=== PATIENT | male | born 1940 | race Caucasian/White ===

== ENCOUNTER → 2023-08-06 13:54 | Outpatient (REF) | payer MEDICARE, SELFPAY | LOC: DHVS 13:54 | PROVIDERS: ATTENDING PHYSICIAN Surgery Vascular Surgery; FAMILY PHYSICIAN Family Medicine | DX: I73.9 Peripheral vascular disease, unspecified (principal) | CPT/HCPCS: 93922; 93925 ==

== ENCOUNTER → 2024-02-19 12:42 | Outpatient (REF) | payer MEDICARE, SELFPAY | LOC: RCS 12:42 | PROVIDERS: ATTENDING PHYSICIAN Internal Medicine Cardiovascular Disease; FAMILY PHYSICIAN Family Medicine | DX: Z95.2 Presence of prosthetic heart valve (principal); I34.0 Nonrheumatic mitral (valve) insufficiency | CPT/HCPCS: 93306 ==

== ENCOUNTER → 2024-04-07 11:03 | Outpatient (REF) | payer MEDICARE, SELFPAY | LOC: RAD 11:03 | PROVIDERS: ATTENDING PHYSICIAN Surgery Vascular Surgery; FAMILY PHYSICIAN Family Medicine | DX: I73.9 Peripheral vascular disease, unspecified (principal) | CPT/HCPCS: 93922; 93925 ==

== ENCOUNTER 2024-05-21 13:00 | Outpatient (RCR) | payer MEDICARE, SELFPAY ==
[2024-05-21 14:31] LABS: Glucose - Point of Care 260 mg/dl (70-99)
[2024-05-21 15:24] LABS: Glucose - Point of Care 171 mg/dl (70-99)
== END 2024-05-21 23:59 | disposition home or self-care (01) ==
LOC: CRHB 13:00
PROVIDERS: ATTENDING PHYSICIAN Surgery Vascular Surgery; FAMILY PHYSICIAN Family Medicine
DX: I70.213 Atherosclerosis of native arteries of extremities with intermittent claudication, bilateral legs (principal)
CPT/HCPCS: 82962; 93668

== ENCOUNTER 2024-06-23 11:43 | Outpatient (RCR) | payer MEDICARE, SELFPAY ==
[2024-05-26 11:01] LABS: Glucose - Point of Care 180 mg/dl (70-99)
[2024-05-26 12:07] LABS: Glucose - Point of Care 136 mg/dl (70-99)
[2024-05-30 11:58] LABS: Glucose - Point of Care 122 mg/dl (70-99)
[2024-05-30 11:58] LABS: Glucose - Point of Care 161 mg/dl (70-99)
[2024-06-02 11:02] LABS: Glucose - Point of Care 146 mg/dl (70-99)
[2024-06-02 11:53] LABS: Glucose - Point of Care 105 mg/dl (70-99)
[2024-06-04 10:40] LABS: Glucose - Point of Care 205 mg/dl (70-99)
[2024-06-04 11:56] LABS: Glucose - Point of Care 194 mg/dl (70-99)
[2024-06-06 10:51] LABS: Glucose - Point of Care 154 mg/dl (70-99)
[2024-06-06 12:00] LABS: Glucose - Point of Care 100 mg/dl (70-99)
[2024-06-09 11:12] LABS: Glucose - Point of Care 222 mg/dl (70-99)
[2024-06-09 12:10] LABS: Glucose - Point of Care 159 mg/dl (70-99)
[2024-06-11 11:00] LABS: Glucose - Point of Care 120 mg/dl (70-99)
[2024-06-11 12:02] LABS: Glucose - Point of Care 88 mg/dl (70-99)
[2024-06-13 10:56] LABS: Glucose - Point of Care 193 mg/dl (70-99)
[2024-06-13 11:56] LABS: Glucose - Point of Care 111 mg/dl (70-99)
== END 2024-06-23 23:59 | disposition home or self-care (01) ==
LOC: CRHB 11:43
PROVIDERS: ATTENDING PHYSICIAN Surgery Vascular Surgery; FAMILY PHYSICIAN Family Medicine
DX: I70.213 Atherosclerosis of native arteries of extremities with intermittent claudication, bilateral legs (principal)
CPT/HCPCS: 82962; 93668

== ENCOUNTER 2024-07-25 11:33 | Outpatient (RCR) | payer MEDICARE, SELFPAY | END 2024-07-25 23:59 | disposition home or self-care (01) | LOC: CRHB 11:33 | PROVIDERS: ATTENDING PHYSICIAN Surgery Vascular Surgery; FAMILY PHYSICIAN Family Medicine | DX: I70.213 Atherosclerosis of native arteries of extremities with intermittent claudication, bilateral legs (principal) | CPT/HCPCS: 93668 ==

== ENCOUNTER → 2024-07-30 12:24 | Outpatient (REF) | payer MEDICARE, SELFPAY | LOC: RAD 12:24 | PROVIDERS: ATTENDING PHYSICIAN Family Medicine | DX: R63.4 Abnormal weight loss (principal) | CPT/HCPCS: 71046 ==

== ENCOUNTER → 2024-08-01 13:14 | Outpatient (REF) | payer MEDICARE, SELFPAY | LOC: RAD 13:14 | PROVIDERS: ATTENDING PHYSICIAN Family Medicine | DX: R63.4 Abnormal weight loss (principal) | CPT/HCPCS: 74177; Q9967 ==

== ENCOUNTER 2024-08-18 11:20 | Outpatient (RCR) | payer MEDICARE, SELFPAY | END 2024-08-18 16:46 | disposition home or self-care (01) | LOC: CRHB 11:20 | PROVIDERS: ATTENDING PHYSICIAN Surgery Vascular Surgery; FAMILY PHYSICIAN Family Medicine | DX: I70.213 Atherosclerosis of native arteries of extremities with intermittent claudication, bilateral legs (principal) | CPT/HCPCS: 93668; 93798 ==

== ENCOUNTER → 2024-08-22 13:02 | Outpatient (REF) | payer MEDICARE, SELFPAY | LOC: RAD 13:02 | PROVIDERS: ATTENDING PHYSICIAN Family Medicine | DX: M25.511 Pain in right shoulder (principal) | CPT/HCPCS: 73030 ==

== ENCOUNTER → 2024-10-17 13:56 | Outpatient (REF) | payer MEDICARE, SELFPAY | LOC: DHVS 13:56 | PROVIDERS: ATTENDING PHYSICIAN Surgery Vascular Surgery; FAMILY PHYSICIAN Family Medicine | DX: I73.9 Peripheral vascular disease, unspecified (principal) | CPT/HCPCS: 93922; 93925 ==

== ENCOUNTER 2024-11-05 06:28 | Day surgery (SDC) | payer MEDICARE, SELFPAY ==
[2024-10-30 10:36] LABS: Hematocrit 28.1 % (39.0-52.0); Hemoglobin 9.6 g/dL (13.0-18.0); Mean Corp Hgb Conc. 34.2 g/dL (33.0-37.0); Mean Corpuscular Hgb 32.3 pg (27.0-31.0); Mean Corpuscular Volume 94.6 fL (80.0-94.0); Mean Platelet Volume 10.4 fL (7.4-10.4); Platelet Count 177 10^3/uL (130-400); Red Blood Cell Count 2.97 10^6/uL (4.70-6.10); Red Cell Dist. Width 12.9 % (11.5-14.5); White Blood Cell Count 4.9 10^3/uL (4.8-10.8)
[2024-10-30 11:04] LABS: Blood Urea Nitrogen 28 mg/dl (9-20); Calcium 9.8 mg/dl (8.4-10.2); Carbon Dioxide 27 mmol/L (22-30); Chloride 106 mmol/L (98-107); Glucose 85 mg/dl (70-99); Potassium 4.1 mmol/L (3.5-5.1); Sodium 142 mmol/L (135-145); eGFR 36.89
[2024-10-30 11:52] VITALS: BMI 23.3
--- NOTE | 2024-10-30 14:39 | PTCARENOTE ---
Sarah in office made aware of Cr 1.8.
[2024-11-05] VITALS (12 sets, daily range): BP systolic 118–157; BP diastolic 53–98; BMI 23.3
--- NOTE | 2024-11-05 07:56 | PTCARENOTE ---
Patient is on Plavix and he took it 11/04/24. Dr. Zeng notified and is ok with it. Will monitor patient.
[2024-11-05] MEDS: CYSVIEW KIT 100 MG INTRAVES (08:00)
[2024-11-05 08:17] LABS: Glucose - Point of Care 143 mg/dl (70-99)
[2024-11-05] MEDS: NORMOSOL-R/PLASMALYTE-A 1000 IV (08:22)
--- NOTE | 2024-11-05 08:32 | PTCARENOTE ---
Patient ordered Ancef and patient is allergic to PCN. Dr. Zeng notified and Ancef switched to Levaquin. Will monitor patient.
[2024-11-05] MEDS: SYRINGE NON-PUMP 50 ML IRRIG ×2 (09:57→09:58)
[2024-11-05] MEDS: SYRINGE NON-PUMP 50 MG IRRIG ×2 (09:57→09:58)
[2024-11-05] MEDS: Pyridium 200 MG PO (10:11)
[2024-11-05] MEDS: SUBLIMAZE 25 MCG IV (10:31)
[2024-11-05 11:24] LABS: Glucose - Point of Care 111 mg/dl (70-99)
== END 2024-11-05 12:25 | disposition home or self-care (01) ==
LOC: SDS 06:28
PROVIDERS: ATTENDING PHYSICIAN Specialist; FAMILY PHYSICIAN Family Medicine
DX: C67.9 Malignant neoplasm of bladder, unspecified (principal); R31.0 Gross hematuria
CPT/HCPCS: 52235; 51720; C9738; 88307; 36415; 80048; 82962; 85027; A9589; J9201

== ENCOUNTER 2024-12-09 07:26 | Outpatient (RCR) | payer MEDICARE, SELFPAY ==
[2024-12-09] MEDS: SODIUM BICARBONATE 1150 MEQ IV (08:05)
[2024-12-09 08:22] VITALS: BP 91/54
[2024-12-09 14:50] VITALS: BP 144/54
== END 2024-12-22 23:59 | disposition home or self-care (01) ==
LOC: OID 07:26
PROVIDERS: ATTENDING PHYSICIAN Surgery Vascular Surgery
DX: I73.9 Peripheral vascular disease, unspecified (principal)
CPT/HCPCS: 96365; 96366

== ENCOUNTER → 2024-12-09 07:49 | Outpatient (REF) | payer MEDICARE, SELFPAY | LOC: RAD 07:49 | PROVIDERS: ATTENDING PHYSICIAN Surgery Vascular Surgery | DX: I73.9 Peripheral vascular disease, unspecified (principal) | CPT/HCPCS: 75635; Q9967 ==

== ENCOUNTER 2025-03-02 15:56 | Emergency (ER) | payer MEDICARE, SELFPAY ==
[2025-03-02 16:03] LABS: Glucose - Point of Care 361 mg/dl (70-99)
[2025-03-02 16:41] LABS: Hematocrit 30.4 % (39.0-52.0); Hemoglobin 9.9 g/dL (13.0-18.0); Mean Corp Hgb Conc. 32.6 g/dL (33.0-37.0); Mean Corpuscular Volume 92.7 fL (80.0-94.0); Nucleated Red Blood Cells % 0 % (-); Platelet Count 226 10^3/uL (130-400); Red Cell Dist. Width 13.3 % (11.5-14.5)
[2025-03-02 17:00] LABS: ALT (SGPT) 18 U/L (0-50); AST (SGOT) 22 U/L (17-59); Albumin 3.9 g/dl (3.5-5.0); Alkaline Phosphatase 79 U/L (38-126); Blood Urea Nitrogen 21 mg/dl (9-20); Calcium 10.6 mg/dl (8.4-10.2); Carbon Dioxide 29 mmol/L (22-30); Chloride 100 mmol/L (98-107); Glucose 353 mg/dl (70-99); Potassium 4.0 mmol/L (3.5-5.1); Sodium 135 mmol/L (135-145); Total Protein 6.3 g/dl (6.3-8.2); eGFR 36.66
--- NOTE | 2025-03-02 17:54 | ED.GENMED ---
History of Present Illness
General
Chief Complaint: Blood Sugar Problem
Time Seen by Provider: 03/02/25 17:54
History of Present Illness
History of Present Illness:
FOCUSED PAST MEDICAL HISTORY
- The patient has a history of aortic stenosis, high blood pressure, hyperlipidemia, diabetes, bladder cancer
REVIEW OF OLD RECORDS
- I reviewed Dr. Zeng's note from October 2024 which indicates the patient had a transurethral resection of a bladder tumor, intravesicular chemo instillation and White/bluelight cystoscopy's.
I reviewed the note from Dr. Thibodeaux which indicates 'Romulo's blood sugar is uncontrolled at 307, he is dehydrated based on recent lab, BUN 25, creatinine 2.17, and GFR 29, baseline numbers were BUN 28, creatinine 1.86 and GFR 35'.
Note:
CHIEF COMPLAINT(S)
Unintentional significant weight loss, high blood glucose levels, and possible gastrointestinal bleeding.
HISTORY OF PRESENT ILLNESS
The patient is an 84-year-old male with a history of diabetes mellitus type 2 and peripheral artery disease (PAD), presenting with significant unintentional weight loss. The patient reports a decrease from over 200 pounds a couple of years ago to
about 150 pounds currently. The weight loss was not intentional. On recent blood work, elevated blood glucose levels were noted, with values reportedly as high as 440 mg/dL recently. The patient stopped using some diabetes medications due to high
costs, including Januvia and Janumet, and is currently taking glipizide and metformin. A recent hemoglobin level is reportedly in the 9s.
The patient also reports symptoms consistent with gastrointestinal bleeding, as rectal bleeding was subtly noted on examination, possibly due to internal hemorrhoids. The patient experiences cognitive difficulties post-anesthesia, influencing
decisions about future procedures such as colonoscopy or endoscopy.
The patient has stage 3 kidney disease and is aware of ongoing kidney function issues, with recent creatinine levels around 2. The current creatinine levels and glomerular filtration rate (GFR) are consistent with historical records and have been
stable over the years.
The patient was referred to the emergency room by a primary care provider following concerns about the recent blood work indicating a decline in hemoglobin and glucose management.
PAST MEDICAL AND SURGICAL HISTORY
The patient has a history of aortic valve replacement approximately 17 years ago and is diagnosed with peripheral artery disease (PAD).
ADDITIONAL HISTORY OBTAINED FROM SOURCES OTHER THAN THE PATIENT
Family member accompanying the patient provided a verbal account of recent appointments and test results, including visits to a racetrack steward, a manufacturing analyst, and a primary care physician. The family confirmed the patient was not experiencing
any obvious external signs of bleeding that could explain the loss in blood count, apart from potentially internal hemorrhoids.
CHRONIC MEDICAL CONDITIONS SIGNIFICANTLY AFFECTING CARE
- Diabetes mellitus type 2
- Stage 3 chronic kidney disease
- Peripheral artery disease
SOCIAL DETERMINANTS AFFECTING HEALTH
- Financial constraints impacting the ability to afford certain diabetes medications, such as Januvia and Janumet.
ALLERGIES
- The patient has a history of allergies, including a significant reaction to penicillin and recent hives following an RSV vaccine.
MEDICATIONS
- Glipizide 10 mg, taken once daily
- Metformin 1000 mg, taken once daily
- Plavix (clopidogrel)
PHYSICAL EXAM
General: Alert, no acute distress.
Skin: Warm, dry.
Head: Normocephalic, atraumatic.
Neck: Supple, trachea midline.
Eyes, Ears, Nose, Mouth: Oral mucosa moist.
Cardiovascular: Normal peripheral perfusion, No edema. Regular rhythm
Respiratory: Respirations are non-labored.
Gastrointestinal: Abdomen nondistended. Heme positive loose brown stool on digital rectal examination
Back: Normal range of motion, Normal alignment.
Musculoskeletal: Normal range of motion, normal strength.
Neurological: He is awake and alert, joking but does seem to have some memory issues and some mild cognitive deficits
Psychiatric: Cooperative, appropriate mood & affect.
Rectal Exam: Borderline positive for occult blood; no visible hemorrhoids.
PLAN
- Initiate intravenous fluids.
- Consider a non-contrast CT scan of the abdomen to investigate the cause of the significant weight loss.
- Discuss the benefits and risks of undergoing a colonoscopy and endoscopy concurrently to evaluate gastrointestinal bleeding sources.
- Review financial options for diabetes medications that are more affordable.
- Monitor kidney function and glucose levels closely.
DIFFERENTIAL DIAGNOSIS
The Differential Diagnosis includes, in no particular order and is not limited to:
1. Malignancy
2. Uncontrolled diabetes mellitus
3. Gastrointestinal bleeding secondary to internal hemorrhoids
4. Chronic kidney disease complications
5. Vitamin deficiencies (e.g., vitamin B12 or folate deficiency)
6. Peptic ulcer disease
7. Inflammatory bowel disease
8. Hyperthyroidism
9. Medication-induced weight loss
10. Psychological conditions (e.g., depression) affecting weight and appetite.
Disposition:
SUMMARY OF ENCOUNTER
The patient, an 84-year-old male, presented to the emergency department due to concerns about significant unintentional weight loss and high blood glucose levels. Importantly, the patient was not in distress and was alert during examination. Blood
work indicated stable kidney function, but the glucose levels were notably elevated post-prandial, though fasting sugars were on the lower side. A CT scan was conducted that showed no evidence of malignancy. Diabetes management was a primary
concern, especially in view of financial constraints impacting medication adherence. The possibility of starting insulin was discussed, but the patient declined hospital admission for further glucose monitoring and preferred to manage outpatient.
DISPOSITION
Patient discharged with advice to follow up with primary care, particularly Dr. Thibodeaux, for ongoing diabetes management and consideration of insulin initiation.
ASSESSMENT
- Uncontrolled diabetes mellitus with significant post-prandial hyperglycemia.
- Stable kidney function with no acute deterioration noted.
- Previous discussions regarding potential cognitive decline after anesthesia were reviewed.
PLAN
The patient is advised to monitor his dietary intake closely and to follow up with Dr. Thibodeaux for further diabetes management, including the potential initiation of insulin therapy. Recommended to possibly contact Dr. Thibodeaux the following day to
schedule a follow-up consultation.
INDEPENDENT REVIEW OF LABS AND INTERPRETATION OF TESTS
My independent review of blood work indicates the patients kidney function is stable as per historical reference, with persistent hyperglycemia post-prandial noted in recent assessments.
MEDICAL DECISION MAKING
-Complexity of Data Reviewed:
Chronic conditions affecting care include diabetes mellitus type 2 and stable stage 3 chronic kidney disease.
-Data:
Category 1
Non-emergency department records reviewed, external record reviewed: I reviewed the patients kidney function results, which were stable compared to prior results.
Category 2
Clinical information was obtained from an independent historian, specifically a family member who confirmed adherence to glucose monitoring routines and financial limitations impacting medication affordability.
-Risk:
Prescription medication management was discussed, with the potential for insulin therapy considered but not initiated due to the patients preference.
Care was significantly affected by social determinants of health, specifically financial constraints impacting the patients ability to afford certain diabetes medications.
DIAGNOSIS
- Type 2 Diabetes Mellitus with Hyperglycemia (E11.65)
- Chronic Kidney Disease, Stage 3 (N18.3)
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
RADIOLOGY
- CT chest abdomen pelvis noncontrast did not show any clear sign for malignancy
LABS
- White count normal, hemoglobin 9.9 which is at baseline, glucose 353, creatinine 1.8. Sodium 135, chloride 100, creatinine 1.8, GFR 37, calcium 10.6, glucose 353
UPDATE
- I offered and considered keeping the patient in the hospital however the patient adamantly declined. He refuses to stay in the hospital. We talked about his hyperglycemia. I called his primary care doctor he states it is fast blood sugar was as
low as 71 but after he eats it has been much higher. I did talk about starting him on insulin however the patient also refuses and wants to watch his diet first. He is to follow-up with PMD and also consider following up with [facility] and Dr. Pizarro.
Past History
Past History
ED Past Medical History: Asthma, HTN, Hypercholesterolemia, NIDDM and Valvular disease
ED Past Surgical History: Cardiac
Social History
Tobacco: Former smoker
Alcohol: None
Living: with family
Phy Exam
Physical Exam
Physical Exam:
See HPI
Course
Orders/Labs/Results
Orders:
Orders
03/02/25 16:15
Complete Blood Count/With Diff Urgent
Comprehensive Metabolic Panel Urgent
03/02/25 17:59
0.9% Sodium Chloride 1000 ml [Nss] 1,000 ml IV BOLUS
03/02/25 18:22
CT Chest/abd/pel Wo Iv Cont Urgent
Comment:
Reason For Exam: 80lbs unintentional weight loss; CKD
03/02/25 19:03
Insulin Human Regular [Novolin R] 6 units SC NOW STA
Abnormal Lab Results
03/02/25 03/02/25 03/02/25
16:01 16:15 19:14
RBC 3.28 L 10^6/uL
(4.70-6.10)
Hgb 9.9 L g/dL
(13.0-18.0)
Hct 30.4 L %
(39.0-52.0)
MCHC 32.6 L g/dL
(33.0-37.0)
MPV 10.5 H fL
(7.4-10.4)
Absolute Lymphs (auto) 1.1 L 10^3/uL
(1.2-3.4)
Lymphocytes % 20.4 L %
(20.5-51.1)
BUN 21 H mg/dl
(9-20)
Creatinine 1.8 H mg/dL
(0.7-1.3)
Glucose 353 H mg/dl
(70-99)
Calcium 10.6 H mg/dl
(8.4-10.2)
POC Glucose 361 H mg/dl 258 H mg/dl
(70-99) (70-99)
03/02/25 16:15
03/02/25 16:15
Vital Signs
Initial and Last Documented VS:
Initial Vital Signs
Temp Pulse Resp Pulse Ox
36.7 C 88 18 98
03/02/25 15:59 03/02/25 15:59 03/02/25 15:59 03/02/25 15:59
Last Documented Vital Signs
Temp Pulse Resp BP Pulse Ox
36.7 C 77 16 130/62 98
03/02/25 15:59 03/02/25 18:00 03/02/25 18:00 03/02/25 18:00 03/02/25 19:44
*Pulse Oximetry
SaO2: 98
Oxygen Mode of Delivery: Room air
Patient hypoxic: no
*Critical Care Note
Total Time (30-74mins, 75-104mins- exclusive of procedures): Not Applicable
ED Attending Note
-
Portions of this chart may have been created with voice recognition software.� Occasional wrong word or��sound alike� substitutions may have occurred due to the inherent limitations of voice recognition software.
Discharge Plan
Departure
Patient Disposition: Home (Routine Discharge)
Date of Disposition: 03/02/25
Time of Disposition: 20:24
Patient with high blood pressure during this ER visit?: Yes
Discharge Problem:
Hyperglycemia
Instructions: Type 2 Diabetes (DC), BLOOD PRESSURE
Prescriptions:
No Action
clopidogrel 75 MG tablet
75 mg PO QPM
atorvastatin 40 MG tablet
40 mg PO QPM
diltiazem HCl 180 MG capsule,extended release 24hr
180 mg PO QPM
aspirin 81 MG tablet,delayed release (DR/EC)
81 mg PO QPM
hydrochlorothiazide 25 MG tablet
25 mg PO QPM
multivitamin Tablet
1 tab PO DAILY
glipizide 10 mg Tablet
10 mg PO QPM
acetaminophen [Tylenol Arthritis] 650 mg Tablet Extended Release
1,300 mg PO Q12H PRN (Reason: pain)
ferrous sulfate [iron] 325 mg (65 mg iron) Tablet
325 mg PO DAILY
vitamin E 268 mg (400 unit) Capsule
268 mg PO DAILY
cholecalciferol (vitamin D3) [Vitamin D3] 25 mcg (1,000 unit) Capsule
50 mcg PO DAILY
metformin 1,000 mg Tablet Extended Release 24hr
1,000 mg PO QPM
fluticasone propion-salmeterol [Wixela Inhub] 250-50 mcg/dose Blister With Device
1 inh INHALATION BID
omeprazole 20 mg Capsule,Delayed Release(Dr/Ec)
20 mg PO DAILY
tamsulosin 0.4 mg Capsule
0.4 mg PO DAILY
Referrals:
Lavon Thibodeaux MD [Family Provider, Family Practice]
Activity Restrictions/Additional Instructions:
I spoke to Dr. Thibodeaux. I informed him that your blood sugar has been high here. Your blood sugars as high as 353. Your kidney function is impaired but is at baseline. Your hemoglobin is 9.9 and this is similar to where it has been since 2020.
I did the rectal examination there was a small amount of blood that came out positive (Hemoccult positive) however I did not see any red blood. I recommend that you follow-up with your doctor as well as Dr. Patel. Your primary care doctor may
put you on insulin such as Lantus. Repeat blood sugar was 258.
Interventions
Interventions:
*Risk Screen - Suicide Last Done: 03/02/25 15:59
*General Assessment Last Done: 03/02/25 15:59
*Neglect/Abuse Screening Last Done: 03/02/25 15:59
ED- Neurological Assessment Last Done: 03/02/25 19:44
Discharge Date and Time
Print Language: WELSH
[2025-03-02 18:00] VITALS: BP 130/62
[2025-03-02] MEDS: NSS 1000 IV (19:03)
[2025-03-02] MEDS: NOVOLIN R 6 UNITS SC (19:15)
[2025-03-02 19:17] LABS: Glucose - Point of Care 258 mg/dl (70-99)
[2025-03-02 20:00] VITALS: BP 134/71
[2025-03-02 20:43] LABS: Glucose - Point of Care 158 mg/dl (70-99)
== END 2025-03-02 20:56 | disposition home or self-care (01) ==
LOC: EMR 15:56
PROVIDERS: Emergency Medicine; EMERGENCY PHYSICIAN Emergency Medicine; FAMILY PHYSICIAN Family Medicine
DX: E11.65 Type 2 diabetes mellitus with hyperglycemia (principal); E11.51 Type 2 diabetes mellitus with diabetic peripheral angiopathy without gangrene; E11.22 Type 2 diabetes mellitus with diabetic chronic kidney disease; I12.9 Hypertensive chronic kidney disease with stage 1 through stage 4 chronic kidney disease, or unspecified chronic kidney disease; N18.30 Chronic kidney disease, stage 3 unspecified; E78.00 Pure hypercholesterolemia, unspecified; I35.0 Nonrheumatic aortic (valve) stenosis; J45.909 Unspecified asthma, uncomplicated; Z59.86 Financial insecurity; T38.3X6A Underdosing of insulin and oral hypoglycemic [antidiabetic] drugs, initial encounter; Z91.120 Patient's intentional underdosing of medication regimen due to financial hardship; Z79.84 Long term (current) use of oral hypoglycemic drugs; Z79.02 Long term (current) use of antithrombotics/antiplatelets; Z79.82 Long term (current) use of aspirin; Z95.2 Presence of prosthetic heart valve; Z87.891 Personal history of nicotine dependence; Z85.51 Personal history of malignant neoplasm of bladder; Z88.0 Allergy status to penicillin
CPT/HCPCS: 99284; 96360; 96372 ×2; 71250; 74176; 80053; 82962; 85025

== ENCOUNTER 2025-03-28 04:53 | Emergency (ER) | payer MEDICARE, SELFPAY ==
[2025-03-28 04:54] VITALS: BP 134/50
[2025-03-28 04:56] VITALS: BP 134/50
[2025-03-28 05:01] VITALS: BP 142/62; BMI 21.9
[2025-03-28 05:22] LABS: Hematocrit 28.6 % (39.0-52.0); Hemoglobin 9.3 g/dL (13.0-18.0); Mean Corp Hgb Conc. 32.5 g/dL (33.0-37.0); Mean Corpuscular Volume 93.2 fL (80.0-94.0); Nucleated Red Blood Cells % 0 % (-); Platelet Count 211 10^3/uL (130-400); Red Cell Dist. Width 14.1 % (11.5-14.5)
[2025-03-28 05:53] LABS: ALT (SGPT) 23 U/L (0-50); AST (SGOT) 34 U/L (17-59); Albumin 4.3 g/dl (3.5-5.0); Alkaline Phosphatase 83 U/L (38-126); Blood Urea Nitrogen 28 mg/dl (9-20); Calcium 10.7 mg/dl (8.4-10.2); Carbon Dioxide 21 mmol/L (22-30); Chloride 102 mmol/L (98-107); Estimated Creatinine Clearance 27 ml/min; Glucose 55 mg/dl (70-99); Potassium 3.5 mmol/L (3.5-5.1); Sodium 136 mmol/L (135-145); Total Protein 7.0 g/dl (6.3-8.2); eGFR 36.66
[2025-03-28 06:00] VITALS: BP 127/68
[2025-03-28 06:14] LABS: Glucose - Point of Care 68 mg/dl (70-99)
[2025-03-28 06:36] LABS: Glucose - Point of Care 90 mg/dl (70-99)
[2025-03-28 07:43] LABS: Glucose - Point of Care 94 mg/dl (70-99)
[2025-03-28 08:00] VITALS: BP 111/41
[2025-03-28 09:00] VITALS: BP 136/52
[2025-03-28 09:35] LABS: Glucose - Point of Care 135 mg/dl (70-99)
--- NOTE | 2025-03-28 09:54 | ED.GENMED ---
History of Present Illness
General
Chief Complaint: Fall
Source: patient and spouse
Time Seen by Provider: 03/28/25 06:05
History of Present Illness
History of Present Illness:
Note:
CHIEF COMPLAINT(S)
Feeling unwell, dizziness.
HISTORY OF PRESENT ILLNESS
The patient is an 84-year-old male with a significant medical history including diabetes mellitus, currently managed with oral hypoglycemic agents, who presented with symptoms that began earlier today. The patient, while in bed, experienced a
sensation of feeling 'weird' and subsequently attempted to get out of bed. Upon getting up, he felt unsteady and eventually ended up on the floor. His spouse noticed these signs and called emergency medical services (EMS). The patient denied any
chest pain, palpitations, or heart fluttering during the event. The patient reported sweating profusely this morning, which raised the suspicion of a hypoglycemic event. At home, the patient takes his medication regularly including glipizide, which
he takes two hours after dinner. Given his symptoms and a recorded blood glucose level of 55 mg/dL upon arrival, it is believed that hypoglycemia may have contributed to his acute presentation.
PAST MEDICAL AND SURGICAL HISTORY
1. Diabetes Mellitus
2. Peripheral Artery Disease
3. Hypertension
ADDITIONAL HISTORY OBTAINED FROM SOURCES OTHER THAN THE PATIENT
Per the patients spouse, this morning the patient was perspiring heavily and later attempted to get out of bed, but was too weak. She states he did not fall or hit his head. She assisted him in moving to a more secure area and then contacted EMS.
SOCIAL DETERMINANTS AFFECTING HEALTH
The patient has a supportive spouse, and he has experienced stress related to his health limitations, particularly concerning his mobility due to peripheral artery disease.
ALLERGIES
Penicillin.
MEDICATIONS
1. Glipizide
2. Torvastatin
3. Plavix (clopidogrel)
4. Hydrochlorothiazide
5. Metformin
6. Multivitamin
7. Omeprazole
8. Tamsulosin
9. Vitamin D
REVIEW OF SYSTEMS
- General: Profuse perspiration noted.
- Endocrine: History of hypoglycemic episodes.
- Cardiovascular: Denied chest pain and palpitations.
PHYSICAL EXAM
General: Alert, oriented to person, place, and time, no acute distress.
Skin: Warm, dry.
Head: Normocephalic, atraumatic.
Neck: Supple, trachea midline.
Eye, Ears, Nose, Mouth and Throat: Oral mucosa moist.
Cardiovascular: Heart regular, without murmur, normal peripheral perfusion, no edema.
Respiratory: Respirations are non-labored.
Gastrointestinal: Abdomen non-distended.
Back: Normal range of motion, normal alignment.
Musculoskeletal: Normal range of motion, normal strength.
Neurological: Alert and oriented to person, place, time, and situation, no focal neurological deficit observed.
Psychiatric: Cooperative, appropriate mood and affect.
PROBLEM LIST
Acute Problems:
1. Hypoglycemia
2. Dizziness and fall
Chronic Problems:
1. Diabetes Mellitus
2. Peripheral Artery Disease
3. Hypertension
PLAN
1. Monitor and stabilize blood glucose levels.
2. Re-evaluate blood glucose levels to prevent further hypoglycemic episodes.
3. Educate the patient on the importance of monitoring blood glucose and the potential effects of glipizide.
4. Discuss potential modifications to diabetes medications with endocrinology team to prevent further hypoglycemic episodes.
5. Consider dietary modifications to prevent nocturnal hypoglycemia.
DIFFERENTIAL DIAGNOSIS
The Differential Diagnosis includes, in no particular order and is not limited to:
1. Hypoglycemia
2. Orthostatic hypotension
3. Cardiac arrhythmia
4. Stroke or transient ischemic attack
5. Medication side effects
6. Dehydration
7. Vertebrobasilar insufficiency
8. Hypotensive episode
9. Vasovagal reaction
10. Acute myocardial infarction
Disposition:
SUMMARY OF ENCOUNTER
The 84-year-old male presented to the emergency department after experiencing diaphoresis and weakness at home, with an initial blood glucose level of 55 mg/dL, indicating hypoglycemia. The patient, who is on glipizide, was monitored in the
emergency department for five and a half hours. His condition improved after being fed, and his blood glucose levels normalized. EKG displayed a right bundle branch block and left axis deviation, both chronic. Labs showed normal sodium levels and
chronic renal insufficiency with a creatinine of 1.8 mg/dL, consistent with his baseline. The primary cause of his symptoms was determined to be hypoglycemia, likely related to his medication.
DISPOSITION
Discharge
ASSESSMENT
The patient experienced hypoglycemia likely due to glipizide, leading to symptoms of diaphoresis and weakness.
PLAN
- Monitor blood glucose levels at home every two hours for the next 24 hours.
- Hold glipizide for the remainder of the day.
- Contact primary care physician for further management adjustments.
INDEPENDENT REVIEW OF LABS AND INTERPRETATION OF TESTS
My independent review of labs indicates normal sodium levels, chronic renal insufficiency with a creatinine of 1.8 mg/dL, and resolved hypoglycemia after treatment in the emergency department.
PATIENT EDUCATION AND COUNSELING
The patient was advised to maintain a regular diet, monitor blood glucose every two hours for 24 hours, hold glipizide for the day, and seek medical attention if hypoglycemia persists.
FOLLOW-UP INSTRUCTIONS
Follow-up with primary care physician for medication management adjustments.
MEDICATION RECONCILIATION
The patient was instructed to hold glipizide for the rest of the day and monitor his blood glucose levels closely.
MEDICAL DECISION MAKING
- Number and Complexity of Problems Addressed: Chronic conditions affecting care include diabetes mellitus, chronic renal insufficiency, and hypoglycemia. Differential diagnoses considered were hypoglycemia, orthostatic hypotension, cardiac
arrhythmia, stroke or transient ischemic attack, medication side effects, dehydration, vertebrobasilar insufficiency, hypotensive episode, vasovagal reaction, and acute myocardial infarction.
- Data:
Category 1: Clinical information was obtained from an independent historian. EKG independently interpreted, showing chronic right bundle branch block and left axis deviation.
Category 2: Input from patients spouse; detailed history of symptoms provided.
- Risk: Prescription drug management was adjusted to mitigate hypoglycemia risk.
DIAGNOSIS
- Hypoglycemia, ICD-10 code E16.2
- Chronic renal insufficiency, ICD-10 code N18.9
Did offer admission. However, the patient does not want to be admitted and would like to go home to his dogs. He will check his blood sugar every 2 hours
Past History
Past History
ED Past Medical History: Asthma, HTN, Hypercholesterolemia, NIDDM and Valvular disease
ED Past Surgical History: Cardiac
Social History
Tobacco: Former smoker
Alcohol: None
Living: with family
Phy Exam
Physical Exam
Physical Exam:
.
Course
Orders/Labs/Results
Orders:
Orders
03/28/25 05:14
CMP [Comprehensive Metabolic Panel] Urgent
Complete Blood Count/With Diff Urgent
03/28/25 10:18
Electrocardiogram (*1) Urgent
Reason for Study: Fatigue / Weakness
EKG- Treatment ONCE
Abnormal Lab Results
03/28/25 03/28/25 03/28/25
05:14 06:12 09:33
RBC 3.07 L 10^6/uL
(4.70-6.10)
Hgb 9.3 L g/dL
(13.0-18.0)
Hct 28.6 L %
(39.0-52.0)
MCHC 32.5 L g/dL
(33.0-37.0)
Absolute Neuts (auto) 6.8 H 10^3/uL
(1.4-6.5)
Absolute Lymphs (auto) 0.8 L 10^3/uL
(1.2-3.4)
Absolute Monos (auto) 0.7 H 10^3/uL
(0.1-0.6)
Neutrophils % 81.3 H %
(42.2-75.2)
Lymphocytes % 9.2 L %
(20.5-51.1)
Carbon Dioxide 21 L mmol/L
(22-30)
BUN 28 H mg/dl
(9-20)
Creatinine 1.8 H mg/dL
(0.7-1.3)
Glucose 55 L* mg/dl
(70-99)
Calcium 10.7 H mg/dl
(8.4-10.2)
POC Glucose 68 L mg/dl 135 H mg/dl
(70-99) (70-99)
03/28/25 05:14
03/28/25 05:14
Vital Signs
Initial and Last Documented VS:
Initial Vital Signs
Temp Pulse Resp BP Pulse Ox
97.5 F 76 14 134/50 99
03/28/25 04:54 03/28/25 04:54 03/28/25 04:54 03/28/25 04:54 03/28/25 04:54
Last Documented Vital Signs
Temp Pulse Resp BP Pulse Ox
98.2 F 72 20 136/52 99
03/28/25 07:10 03/28/25 09:15 03/28/25 09:15 03/28/25 09:00 03/28/25 09:54
*Pulse Oximetry
SaO2: 99
Oxygen Mode of Delivery: Room air
Patient hypoxic: no
*EKG
Interpreted by ED Provider?: Yes
Interpretation: abnormal
Rate: normal
Rhythm: sinus
[place]: left axis deviation
QRS Pattern: right bundle branch block
Ischemia: non-specific ST changes
*Critical Care Note
Total Time (30-74mins, 75-104mins- exclusive of procedures): Not Applicable
ED Attending Note
-
Portions of this chart may have been created with voice recognition software.� Occasional wrong word or��sound alike� substitutions may have occurred due to the inherent limitations of voice recognition software.
Discharge Plan
Departure
Patient Disposition: Home (Routine Discharge)
Date of Disposition: 03/28/25
Time of Disposition: 10:11
Patient with high blood pressure during this ER visit?: No
Discharge Problem:
Hypoglycemia
Instructions: Low blood sugar in adults - ED (DC)
Prescriptions:
No Action
clopidogrel 75 MG tablet
75 mg PO QPM
atorvastatin 40 MG tablet
40 mg PO QPM
diltiazem HCl 180 MG capsule,extended release 24hr
180 mg PO QPM
aspirin 81 MG tablet,delayed release (DR/EC)
81 mg PO QPM
hydrochlorothiazide 25 MG tablet
25 mg PO QPM
multivitamin Tablet
1 tab PO DAILY
glipizide 10 mg Tablet
10 mg PO QPM
acetaminophen [Tylenol Arthritis] 650 mg Tablet Extended Release
1,300 mg PO Q12H PRN (Reason: pain)
ferrous sulfate [iron] 325 mg (65 mg iron) Tablet
325 mg PO DAILY
vitamin E 268 mg (400 unit) Capsule
268 mg PO DAILY
cholecalciferol (vitamin D3) [Vitamin D3] 25 mcg (1,000 unit) Capsule
50 mcg PO DAILY
metformin 1,000 mg Tablet Extended Release 24hr
1,000 mg PO QPM
fluticasone propion-salmeterol [Wixela Inhub] 250-50 mcg/dose Blister With Device
1 inh INHALATION BID
omeprazole 20 mg Capsule,Delayed Release(Dr/Ec)
20 mg PO DAILY
tamsulosin 0.4 mg Capsule
0.4 mg PO DAILY
Referrals:
Lavon Thibodeaux MD [Family Provider, Family Practice]
Activity Restrictions/Additional Instructions:
Please hold your glipizide today. Please check your blood sugar every 2 hours. Please stick to a normal diet and do not miss meals. Please also consider snacking through the day to maintain your blood sugar. If your blood sugar continues to fall
below 80, please return immediately to the emergency department. Please call your doctor in the next 48 hours for follow up and for further advice on your diabetes management.
Interventions
Interventions:
*Risk Screen - Suicide Last Done: 03/28/25 04:59
*General Assessment Last Done: 03/28/25 04:59
*Neglect/Abuse Screening Last Done: 03/28/25 05:00
*ED- Fall Risk Assessment Last Done: 03/28/25 05:01
*ED COVID-19 Vaccine History Last Done: 03/28/25 05:07
*ED Influenza Vaccine History Last Done: 03/28/25 05:01
*Nursing Disposition Last Done: 03/28/25 10:36
ED-Musculoskeletal Assessment Last Done: 03/28/25 05:09
ED- Neurological Assessment Last Done: 03/28/25 05:07
ED-Skin Assessment Last Done: 03/28/25 05:10
Discharge Date and Time
Discharge Date/Time: 03/28/25 10:36
Print Language: SERBIAN
== END 2025-03-28 10:36 | disposition home or self-care (01) ==
LOC: EMR 04:53
PROVIDERS: Emergency Medicine; EMERGENCY PHYSICIAN Emergency Medicine; FAMILY PHYSICIAN Family Medicine
DX: E11.649 Type 2 diabetes mellitus with hypoglycemia without coma (principal); I12.9 Hypertensive chronic kidney disease with stage 1 through stage 4 chronic kidney disease, or unspecified chronic kidney disease; E11.22 Type 2 diabetes mellitus with diabetic chronic kidney disease; N18.9 Chronic kidney disease, unspecified; E78.00 Pure hypercholesterolemia, unspecified; J45.909 Unspecified asthma, uncomplicated; Z87.891 Personal history of nicotine dependence; Z88.0 Allergy status to penicillin
CPT/HCPCS: 99284; 80053; 82962; 85025; 93005

== ENCOUNTER → 2025-04-29 14:05 | Outpatient (REF) | payer MEDICARE, SELFPAY | LOC: RCS 14:05 | PROVIDERS: ATTENDING PHYSICIAN Internal Medicine Cardiovascular Disease; FAMILY PHYSICIAN Family Medicine | DX: R07.89 Other chest pain (principal) | CPT/HCPCS: 93306 ==

== ENCOUNTER 2025-06-11 11:29 | Emergency (ER) | payer MEDICARE, SELFPAY ==
--- NOTE | 2025-06-11 11:42 | ED.GENMED ---
History of Present Illness
General
Chief Complaint: Change Level of Consciousness
Source: patient, spouse and ambulance crew
Exam Limitations: dementia
Time Seen by Provider: 06/11/25 11:31
Nursing documentation reviewed up to this point in time: agreed with
History of Present Illness
History of Present Illness:
Note:
CHIEF COMPLAINT(S)
Altered mental status.
HISTORY OF PRESENT ILLNESS
The patient is an 84-year-old male who presented with altered mental status. According to his , he has dementia and resides at home. Last night, the patients noted a change in his behavior and became concerned about potential issues with
his blood sugar levels. His morning blood glucose reading was notably low at 100 mg/dL. Upon examination, the patient responded to commands by lifting both feet and following various instructions. He reported feeling tired but denied any pain. He
was oriented to person but displayed confusion regarding location and specifics of his surroundings.
PHYSICAL EXAM
General: Alert; no acute distress.
Skin: Warm, dry.
Head: Normocephalic, atraumatic.
Neck: Supple, trachea midline.
Eyes, Ears, Nose, Mouth, and Throat: Oral mucosa moist.
Cardiovascular: Normal peripheral perfusion, no edema.
Respiratory: Respirations are non-labored.
Gastrointestinal: Abdomen non-distended.
Back: Normal range of motion, normal alignment.
Musculoskeletal: Normal range of motion, normal strength.
Neurological: Alert and oriented to person; some confusion about location and situation.
Psychiatric: Cooperative; mood and affect appropriate.
DIFFERENTIAL DIAGNOSIS
The Differential Diagnosis includes, in no particular order and is not limited to:
1. Hypoglycemia
2. Stroke
3. Dementia exacerbation
4. Delirium
5. Infection (e.g., urinary tract infection, pneumonia)
6. Electrolyte imbalance
7. Medication effect
8. Dehydration
9. Sepsis
10. Intracranial bleed
EKG
My independent EKG interpretation is:
- Time of EKG: Not specified
- Rhythm: Normal sinus rhythm
- Heart rate: Not specified
- DE interval: Not specified
- QRS duration: Not specified
- QT interval: Not specified
- [place]: Not specified
- Abnormalities observed:
- Right bundle branch block
- Left fascicular block
Disposition:
SUMMARY OF ENCOUNTER
The 84-year-old male patient presented to the emergency department with altered mental status. Upon evaluation, it was found that he had exhibited confusion and low blood sugar levels earlier. An examination revealed the patient was alert but
confused. There were no acute findings such as signs of infection or a urinary tract infection. His condition was deemed stable enough for discharge.
DISPOSITION
The patient was discharged with a plan for case management to assess and potentially offer home assistance for the patient and his .
PATIENT EDUCATION AND COUNSELING
The patients was informed about the findings and the stability of the patients condition. The importance of follow-up care and monitoring his condition at home was emphasized.
FOLLOW-UP INSTRUCTIONS
Case management will follow up with the patient and his to evaluate and implement any necessary home assistance.
MEDICAL DECISION MAKING
-Complexity of Data Reviewed: Chronic conditions affecting care such as dementia.
-Data:
Category 1
Clinical information was obtained from an independent historian.
Category 2
My independent interpretation of the EKG: Normal sinus rhythm with a right bundle branch block and left fascicular block. These findings were noted, but no acute intervention was necessary.
-Risk:
Prescription medication was not discussed, but consideration for ongoing management at home was emphasized. Care significantly affected by Social Determinants of Health: The patients condition and management were significantly influenced by his
current home environment and the availability of his to aid in his care.
DIAGNOSIS
Altered mental status (R41.82)
Dementia (F03.90)
Past History
Past History
ED Past Medical History: Asthma, HTN, Hypercholesterolemia, NIDDM and Valvular disease
ED Past Surgical History: Cardiac
Social History
Tobacco: Former smoker
Alcohol: None
Living: with family
Phy Exam
Physical Exam
Physical Exam:
.
Course
Orders/Labs/Results
Orders:
Orders
06/11/25 11:40
Cardiac Monitoring- Treatment ONCE
IV Insert/Care/Rem.- Treatment PRN
Straight cath- Treatment ONCE
Pulse Ox/cont/shift [RESP] Stat
Quantity: 1
06/11/25 11:53
Electrocardiogram (*1) Urgent
Reason for Study: Atrial Fibrillation
EKG- Treatment ONCE
06/11/25 11:59
Complete Blood Count/With Diff Urgent
Comprehensive Metabolic Panel Urgent
Lipase Urgent
Urinalysis Reflex To Culture Urgent
Date Specimen was Collected: 06/11/25
Time Specimen was Collected: 11:52
Urine Microscopic Reflex Cult Urgent
06/11/25 13:12
CT Head W/o Iv Contrast Urgent
Comment:
Reason For Exam: confusion
06/11/25 13:44
CT Abd/pel Without Iv Or Oral Urgent
Comment:
Reason For Exam: diffuse abd pain
06/11/25 16:23
Case Management Consult ONCE
Case Management Consult: VN/Home Care
Abnormal Lab Results
06/11/25 06/11/25
11:59 16:19
RBC 3.39 L 10^6/uL
(4.70-6.10)
Hgb 10.7 L g/dL
(13.0-18.0)
Hct 31.6 L %
(39.0-52.0)
MCH 31.6 H pg
(27.0-31.0)
MPV 10.8 H fL
(7.4-10.4)
Sodium 133 L mmol/L
(135-145)
BUN 28 H mg/dl
(9-20)
Creatinine 1.7 H mg/dL
(0.7-1.3)
Glucose 250 H mg/dl
(70-99)
Calcium 10.7 H mg/dl
(8.4-10.2)
Urine Ketones 1+ A
(Negative)
Urine Bacteria (Reflex) Few A
(Negative)
Urine Albumin (Reflex) 2+ A
(Neg - Trace)
POC Glucose 172 H mg/dl
(70-99)
06/11/25 11:59
06/11/25 11:59
Vital Signs
Initial and Last Documented VS:
Initial Vital Signs
Pulse Resp Pulse Ox
89 24 98
06/11/25 12:02 06/11/25 12:02 06/11/25 12:02
Last Documented Vital Signs
Temp Pulse Resp BP Pulse Ox
97.7 F 73 12 153/68 98
06/11/25 12:11 06/11/25 16:00 06/11/25 15:30 06/11/25 16:00 06/11/25 15:30
*Pulse Oximetry
Patient hypoxic: no
*Critical Care Note
Total Time (30-74mins, 75-104mins- exclusive of procedures): Not Applicable
ED Attending Note
-
Portions of this chart may have been created with voice recognition software.� Occasional wrong word or��sound alike� substitutions may have occurred due to the inherent limitations of voice recognition software.
Discharge Plan
Departure
Patient Disposition: Home (Routine Discharge)
Date of Disposition: 06/11/25
Time of Disposition: 16:21
Patient with high blood pressure during this ER visit?: Yes
Condition: Good
Discharge Problem:
Altered mental status
Instructions: Altered Mental Status (DC), BLOOD PRESSURE
Prescriptions:
No Action
clopidogrel 75 MG tablet
75 mg PO QPM
atorvastatin 40 MG tablet
40 mg PO QPM
diltiazem HCl 180 MG capsule,extended release 24hr
180 mg PO QPM
aspirin 81 MG tablet,delayed release (DR/EC)
81 mg PO QPM
hydrochlorothiazide 25 MG tablet
25 mg PO QPM
multivitamin Tablet
1 tab PO DAILY
glipizide 10 mg Tablet
10 mg PO QPM
acetaminophen [Tylenol Arthritis] 650 mg Tablet Extended Release
1,300 mg PO Q12H PRN (Reason: pain)
ferrous sulfate [iron] 325 mg (65 mg iron) Tablet
325 mg PO DAILY
vitamin E 268 mg (400 unit) Capsule
268 mg PO DAILY
cholecalciferol (vitamin D3) [Vitamin D3] 25 mcg (1,000 unit) Capsule
50 mcg PO DAILY
metformin 1,000 mg Tablet Extended Release 24hr
1,000 mg PO QPM
fluticasone propion-salmeterol [Wixela Inhub] 250-50 mcg/dose Blister With Device
1 inh INHALATION BID
omeprazole 20 mg Capsule,Delayed Release(Dr/Ec)
20 mg PO DAILY
tamsulosin 0.4 mg Capsule
0.4 mg PO DAILY
Referrals:
Lavon Thibodeaux MD [Family Provider, Family Practice] - Call in 1-3 days for appt
Interventions
Interventions:
*General Assessment Last Done: 06/11/25 12:10
*Neglect/Abuse Screening Last Done: 06/11/25 12:10
*ED COVID-19 Vaccine History Last Done: 06/11/25 12:10
*ED Influenza Vaccine History Last Done: 06/11/25 12:10
[facility] Fall Risk Assessment Tool Last Done: 06/11/25 12:10
*Risk Screen - Suicide (C-SSRS) Last Done: 06/11/25 12:10
ED- Cardiac Assessment Last Done: 06/11/25 12:11
ED- Neurological Assessment Last Done: 06/11/25 12:11
ED-Psychological Assessment Last Done: 06/11/25 12:14
ED- Pulmonary Assessment Last Done: 06/11/25 12:11
Discharge Date and Time
Print Language: ARABIC
[2025-06-11 12:18] LABS: Hematocrit 31.6 % (39.0-52.0); Hemoglobin 10.7 g/dL (13.0-18.0); Mean Corp Hgb Conc. 33.9 g/dL (33.0-37.0); Mean Corpuscular Volume 93.2 fL (80.0-94.0); Nucleated Red Blood Cells % 0 % (-); Platelet Count 186 10^3/uL (130-400); Red Cell Dist. Width 13.5 % (11.5-14.5)
[2025-06-11 12:21] LABS: Urine Character Clear (Clear)
[2025-06-11 12:33] LABS: ALT (SGPT) 18 U/L (0-50); AST (SGOT) 26 U/L (17-59); Albumin 4.1 g/dl (3.5-5.0); Alkaline Phosphatase 58 U/L (38-126); Blood Urea Nitrogen 28 mg/dl (9-20); Calcium 10.7 mg/dl (8.4-10.2); Carbon Dioxide 27 mmol/L (22-30); Chloride 98 mmol/L (98-107); Estimated Creatinine Clearance 28 ml/min; Glucose 250 mg/dl (70-99); Lipase 51 U/L (23-300); Potassium 4.3 mmol/L (3.5-5.1); Sodium 133 mmol/L (135-145); Total Protein 6.9 g/dl (6.3-8.2); Urine Red Blood Cell 0-2 /HPF (0-2); eGFR 39.26
[2025-06-11 13:00] VITALS: BP 151/65
[2025-06-11 14:00] VITALS: BP 157/66
[2025-06-11 15:02] VITALS: BP 166/56
[2025-06-11 16:00] VITALS: BP 153/68
[2025-06-11 16:20] LABS: Glucose - Point of Care 172 mg/dl (70-99)
[2025-06-11 17:00] VITALS: BP 148/85
--- NOTE | 2025-06-11 17:10 | EDCM ---
Addendum entered by Mary Lou Morales 06/11/25 17:35:
I received a call back from Anna, her and her are on their way to pt's house. I updated pt and his .
Original Note:
Received consult, reviewed chart and met with pt and his bedside in ED. They live in [facility] with basement, [address]
Pt has a history of DM and dementia.
Pt's will drive him home but will need assistance at home to get him in the house. She reached out to her nephew Kranthi but he is in [place]. His parents live close to pt, he is trying to reach them to assist. I also tried to reach Anna
[phone] but had to leave a voicemail.
is agreeable to referral to [facility]. Referral placed in [facility].
== END 2025-06-11 17:15 | disposition home or self-care (01) ==
LOC: EMR 11:29
PROVIDERS: EMERGENCY PHYSICIAN Emergency Medicine; FAMILY PHYSICIAN Family Medicine
DX: R41.82 Altered mental status, unspecified (principal); I45.2 Bifascicular block; F03.90 Unspecified dementia, unspecified severity, without behavioral disturbance, psychotic disturbance, mood disturbance, and anxiety; E11.9 Type 2 diabetes mellitus without complications; I48.91 Unspecified atrial fibrillation; I10 Essential (primary) hypertension; E78.00 Pure hypercholesterolemia, unspecified; J45.909 Unspecified asthma, uncomplicated; Z79.84 Long term (current) use of oral hypoglycemic drugs; Z79.02 Long term (current) use of antithrombotics/antiplatelets; Z79.82 Long term (current) use of aspirin; Z87.891 Personal history of nicotine dependence
CPT/HCPCS: 99284; 70450; 74176; 80053; 81003; 81015; 82962; 83690; 85025; 93005